=== PATIENT | male | born 1980 | race African-American/Black ===

== ENCOUNTER 2018-01-29 11:19 | Emergency (ER) | payer OTHER ==
[~2018-01-29] VITALS: Ht 177.8 cm; Wt 86.2 kg
[2018-01-29 11:32] VITALS: BP 130/104
--- NOTE | 2018-01-29 12:20 | ER.PDOC ---
General Chief Complaint: Extremities Stated Complaint: L KNEE INJURY Time seen by MD: 12:22 Source: patient History of Present Illness Onset: yesterday Where: home Context: twist Severity: moderate Past Medical History Medical History: no pertinent history Social History Smoking: less than 1 pack/day Alcohol Use: occassionally Drug Use: none Review of Systems All Other Systems: Reviewed and Negative Physical Exam General Appearance: Alert, No Apparent Distress Foot: nml inspection, non-tender, nml color/temp, skin intact Ankle: nml inspection, non-tender, nml ROM, no joint swelling, skin intact Knee: see diagram, tenderness, swelling, joint effusion, limited ROM by pain Thigh/Hip: nml inspection Gait: antalgic gait Neuro/Vasc/Tendon: sensation nml, motor nml, no vascular compromise, tendon function nml Skin: warm/dry Head/ENT: nml inspection, pharynx nml Neck/Back: nml inspection, non-tender Splinting Splinting : Pre-Made Type: knee immobilizer Departure Time of Disposition: 13:33 Disposition: 01 HOME, SELF-CARE Impression: Primary Impression: Synovitis of knee Condition: Improved Referrals: PCP,UNKNOWN (PCP) PRIMARY CARE PROVIDER Duration or Time Spent with Pa: 1 HR STU POST MD Jan 29, 2018 12:19
[2018-01-29] MEDS ORDERED: TORADOL ONE (12:27)
[2018-01-29] MEDS ORDERED: TORADOL IM ONE (12:30)
[2018-01-29 12:43] VITALS: BP 122/73
[2018-01-29 12:54] VITALS: BP 122/73
--- NOTE | 2018-01-29 12:57 | DIREP ---
PROCEDURE:XRAY KNEE 1-2 VWS-LT COMPARISON:None. INDICATIONS:INJURY WITH PAIN FINDINGS: BONES:Normal. JOINTS:Normal. SOFT TISSUES:Normal. OTHER:No additional findings. CONCLUSION:Normal examination. Dictated by: Angel Weiner MD on 01/29/2018 at 12:53 PM
== END 2018-01-29 12:43 | disposition home or self-care (01) ==
LOC: ER 11:19
DX: M65.9 Synovitis and tenosynovitis, unspecified (principal); F17.200 Nicotine dependence, unspecified, uncomplicated; X50.1XXA Overexertion from prolonged static or awkward postures, initial encounter; Y93.89 Activity, other specified; Y92.098 Other place in other non-institutional residence as the place of occurrence of the external cause; Y99.8 Other external cause status
CPT/HCPCS: 29505; 73560; 96372; 99284; J1885